=== PATIENT | female | born 1955 | race Caucasian/White ===

== ENCOUNTER 2024-05-07 00:41 | Day surgery (SDC) | payer MEDICARE, OTHER, SELFPAY ==
[2024-01-16 12:06] VITALS: BMI 28.1
--- NOTE | 2024-01-18 08:50 | PC.NURSE ---
PCP and polishing pad mounter will not clear patient to stop her Plavix until she has been seen by Dr. Castillo. Spoke with pt on the phone. She has an appointment with Dr. Castillo on 01/19. I informed pt that she would need to reschedule EGD and Colonoscopy r/t needing to stop Plavix 4 days prior to procedure and clearance being needed from polishing pad mounter. Pt frustrated, but understood.
[2024-05-02 11:57] VITALS: BMI 27.9
--- NOTE | 2024-05-02 12:12 | PC.NURSE ---
Addendum entered by Rhea Valadez RN 05/04/24 09:54: 05/04/2024 Spoke with Ana Nunez at Dr Castillo's office he is okay with patient stopping Plavix and wants pt to start Aspirin 81mg po daily, their office is calling patient to explain and she does not have to hold aspirin. Original Note: Spoke with patient today and pre-op interview reviewed, pt states she was told to stop Plavix at her January appt with Dr. Castillo and was not started on ASA. I explained to patient that was not what we had received from Dr. Castillo. I called Dr. Castillo's office and spoke with Ana Nunez, she will discuss with Dr. Castillo and will call Pt and me to inform of his recommendations moving forward.
[2024-05-07 07:59] VITALS: BP 138/83; PULSE 96; RESP 20; TEMP 36.2; O2SAT 96; BMI 27.8
[2024-05-07] MEDS: LACTATED RINGERS 1,000 ML 150 ML IV CONT (08:13)
--- NOTE | 2024-05-07 08:19 | SUR.PREOP ---
Reported to Dr. Herrera and Dr. Montana that the patient had a tumbler with water in it with her in the waiting room. Patient stated she only had 2 sips of water from it this morning. Patient also reported that when she was taking her prep she threw up 2 -3 times and the last time she vomited she noticed bright red blood in her vomit.
--- NOTE | 2024-05-07 08:27 | PM.HPGS ---
History of Present Illness History of Present Illness Consent: Risks, benefits, and alternatives have been discussed and questions answered. Patient agrees to proceed with procedure. Chief complaint: Melena, TAYLOR Narrative: Jinny Dao is a 68 year old female here for first egd and colonoscopy, 11/2023 diagnosed with TAYLOR, hgb 5.5 and received blood transfusion, last July noted dark stools. Review of Systems Review of Systems: All systems reviewed & are unremarkable except as noted in HPI and below PMFSH Past Medical History Medical History (Updated 01/06/24 @ 11:24 by Ana Archuleta, [employer]-C) Black stools CAD (coronary artery disease) GERD (gastroesophageal reflux disease) Iron deficiency anemia Social History Social History Smoking status: Never smoker Alcohol intake: current Substance use: never Substance use type: does not use Living arrangements: with family Spiritual care concerns: No Meds Home Medications and Allergies Home Medications Medication Instructions Recorded Confirmed Type esomeprazole magnesium 40 mg 40 mg PO BID 01/06/24 05/07/24 History capsule,delayed release (Nexium) rosuvastatin 10 mg tablet (Crestor) 10 mg PO HS 01/06/24 05/07/24 History Vitamin D3 1,000 units PO BID 01/16/24 05/07/24 History ascorbic acid (vitamin C) 1,000 mg 1 g PO BID 01/16/24 05/07/24 History tablet calcium carbonate 600 mg-vitamin 1 tablet PO DAILY 01/16/24 05/07/24 History D3 5 mcg (200 unit) tablet loratadine 10 mg tablet 10 mg PO HS 01/16/24 05/07/24 History metoprolol succinate 25 mg 25 mg PO HS 01/16/24 05/07/24 History tablet,extended release 24 hr montelukast 10 mg tablet 10 mg PO DAILY 01/16/24 05/07/24 History psyllium husk 3.4 gram/5.4 gram 2 tsp PO BID 01/16/24 05/07/24 History oral powder (Metamucil) zinc gluconate 50 mg tablet 50 mg PO DAILY 01/16/24 05/07/24 History aspirin 81 mg tablet,delayed 81 mg PO DAILY 05/02/24 05/07/24 History release benzonatate 100 mg capsule 100 mg PO TID 05/02/24 05/07/24 History ferrous sulfate 325 mg (65 mg 325 mg PO DAILY 05/02/24 05/07/24 History iron) tablet (FeroSul) Allergies Allergy/AdvReac Type Severity Reaction Status Date / Time No Known Allergies Allergy Verified 05/07/24 07:58 Vital Signs Vital Signs - 24 hr 05/07/24 07:59 Temperature 97.2 F L Pulse Rate 96 Respiratory Rate 20 Blood Pressure 138/83 Pulse Oximetry 96 Oxygen Delivery Room Air Exam Const: General: comfortable and no acute distress HENMT: Face/Nose/Sinus: Normal nares present Eyes: General: appearance normal, both eyes and all related structures Neck: Neck: no JVD Resp: Auscultation: clear to auscultation bilaterally Cardio: Rate: regular rate Rhythm: regular rhythm GI: Inspection: non-distended GI Palp: Yes Soft to palpation Skin: General skin exam: normal color Neuro: General: gait normal Speech: normal speech Extrem: General: normal to inspection Psych: Mental Status: mental status grossly normal Assessment and Plan Assessment and plan (1) Iron deficiency anemia: Code(s): D50.9 - Iron deficiency anemia, unspecified Status: Acute Assessment and Plan: egd and colonoscopy to assess if gi loss
[2024-05-07] MEDS: BENZOCAINE (*SP) 60 ML SPRAY CAN (HURRICAINE) 1 SPRAY MUCOUS MEM (08:32)
--- NOTE | 2024-05-07 08:44 | SUR.OPER ---
EGD end 840 COLONOSCOPY START 845
[2024-05-07 09:02] VITALS: BP 115/70; PULSE 72; RESP 20; O2SAT 98
[2024-05-07 09:12] VITALS: BP 119/72; PULSE 70; RESP 20; O2SAT 98
[2024-05-07 09:22] VITALS: BP 126/78; PULSE 64; RESP 18; O2SAT 100
--- NOTE | 2024-05-09 13:27 | WPDANESEPPF ---
Anes - Initial Pre Proc Eval Procedure: Operation Date: 01/23/24 10:00 Proposed Procedures p Esophagogastroduodenoscopy & Colonoscopy - Enio Acevedo MD Operation Date: 05/07/24 09:30 Proposed Procedures p Esophagogastroduodenoscopy & Colonoscopy - Enio Acevedo MD Date/Time: 05/09/24 13:27 Surgeon: Enio Acevedo MD Pre Op Diagnosis: Melena, TAYLOR Patient Data Age: 68 Gender: F Height: 1.63 m Weight: 73.7 kg Last Vital Signs Temp 97.2 F L 05/07/24 07:59 Pulse 64 05/07/24 09:22 Resp 18 05/07/24 09:22 BP 126/78 05/07/24 09:22 Pulse Ox 100 05/07/24 09:22 O2 Del Method Room Air 05/07/24 09:22 Allergies Allergy/AdvReac Type Severity Reaction Status Date / Time No Known Allergies Allergy Verified 05/07/24 07:58 Home Medications Medication Instructions Recorded Confirmed Type rosuvastatin 10 mg tablet (Crestor) 10 mg PO HS 01/06/24 05/07/24 History Vitamin D3 1,000 units PO BID 01/16/24 05/07/24 History ascorbic acid (vitamin C) 1,000 mg 1 g PO BID 01/16/24 05/07/24 History tablet calcium carbonate 600 mg-vitamin 1 tablet PO DAILY 01/16/24 05/07/24 History D3 5 mcg (200 unit) tablet loratadine 10 mg tablet 10 mg PO HS 01/16/24 05/07/24 History metoprolol succinate 25 mg 25 mg PO HS 01/16/24 05/07/24 History tablet,extended release 24 hr montelukast 10 mg tablet 10 mg PO DAILY 01/16/24 05/07/24 History psyllium husk 3.4 gram/5.4 gram 2 tsp PO BID 01/16/24 05/07/24 History oral powder (Metamucil) zinc gluconate 50 mg tablet 50 mg PO DAILY 01/16/24 05/07/24 History aspirin 81 mg tablet,delayed 81 mg PO DAILY 05/02/24 05/07/24 History release benzonatate 100 mg capsule 100 mg PO TID 05/02/24 05/07/24 History ferrous sulfate 325 mg (65 mg 325 mg PO DAILY 05/02/24 05/07/24 History iron) tablet (FeroSul) esomeprazole magnesium 40 mg 40 mg PO BID #60 caps 05/07/24 05/07/24 Rx capsule,delayed release (Nexium) Patient hx anesthesia problems: none Family hx anesthesia problems: none Results Review: All pre-operative results and documents have been reviewed as part of the pre-operative evaluation. [facility] Past Medical History Medical History (Updated 01/06/24 @ 11:24 by ELENA BrysonN-C) Black stools CAD (coronary artery disease) GERD (gastroesophageal reflux disease) Iron deficiency anemia Social History Social History Smoking status: Never smoker Alcohol intake: current Substance use: never Substance use type: does not use Living arrangements: with family Spiritual care concerns: No Anes - Eval Final PreProcedure Day of Procedure 05/09/24 13:27 Patient weight: normal Heart: regular rate and rhythm Lungs: clear to auscultation Airway: Mallampati scale class II Neurological: alert and oriented Last oral intake: >/= 8 hours ASA classification: III Emergent: no Anesthetic plan: proceed Anesthesia type and monitoring: general GIVS and standard monitoring Results Review: All pre-operative results and documents have been reviewed as part of the pre-operative evaluation. Informed Consent: The patient's anesthetic plan and its attendant risks and benefits were discussed with the patient/family/POA. Questions were solicited and answers provided to the satisfaction of the patient/family/POA.
== END 2024-05-07 09:40 | disposition home or self-care (01) ==
PROVIDERS: PCP Emergency Medicine; Visit Provider Internal Medicine Gastroenterology
PROC: 0DJ08ZZ Inspection of Upper Intestinal Tract, Via Natural or Artificial Opening Endoscopic (ICD-10-PCS; CPT 43235; principal; 2024-05-07 09:30)
DX: D12.0 Benign neoplasm of cecum (principal); D12.2 Benign neoplasm of ascending colon; K44.9 Diaphragmatic hernia without obstruction or gangrene; K29.70 Gastritis, unspecified, without bleeding; Q27.33 Arteriovenous malformation of digestive system vessel; K57.30 Diverticulosis of large intestine without perforation or abscess without bleeding; D50.9 Iron deficiency anemia, unspecified; I25.10 Atherosclerotic heart disease of native coronary artery without angina pectoris; K21.9 Gastro-esophageal reflux disease without esophagitis; Z79.82 Long term (current) use of aspirin
CPT/HCPCS: 45385; 43239; 43270; 88305; J2704; J7120